=== PATIENT | female | born 1940 | race Caucasian/White ===

== ENCOUNTER 2018-03-14 13:51 | Emergency (ER) | payer MEDICARE, OTHER ==
[~2018-03-14] VITALS: Wt 59.0 kg
--- NOTE | ~2018-03-14 | EKG ---
[place], [place] ELECTROCARDIOGRAM REPORT NAME: HUSAM MANZANO UNIT #: [id number] ROOM: DOCTOR: LAURA FRANCO MD BIRTHDATE: [birth year] DOS: 03/14/2018 TIME: 1406 hours. FINDINGS: 1. Normal sinus rhythm at 95 beats per minute. 2. The tracing is normal. 3. No previous tracing is available for comparison. LAURA FRANCO MD CM:EKGRPT:ELECTROCARDIOGRAM REPORT 1641 1802 LAURA FRANCO MD
[2018-03-14 14:32] LABS: BILIRUBIN NEGATIVE (NEGATIVE); BLOOD NEGATIVE (NEGATIVE); CLARITY CLEAR (CLEAR); COLOR YELLOW (YELLOW); GLUCOSE NEGATIVE (NEGATIVE); KETONE NEGATIVE (NEGATIVE); LEUKO ESTERASE NEGATIVE (NEGATIVE); NITRITE NEGATIVE (NEGATIVE); PH 7.5 (5.0-9.0); SPECIFIC GRAVITY 1.015 (1.005-1.030); UROBILINOGEN 0.2 E.U./dl (0.2-1.0)
[2018-03-14 14:42] LABS: BACTERIA TRACE; WBC 0-2 wbc/hpf (0-5)
[2018-03-14 14:56] LABS: BASO % 0.2 % (0.0-1.0); EOS % 0.2 % (1.0-4.0); HEMATOCRIT 34.4 % (37.0-47.0); HEMOGLOBIN 11.2 g/dl (12.0-16.0); LYMPH # 1.4 10*3/uL (1.3-4.4); MEAN CELL VOLUME 79.4 fl (81.0-99.0); MEAN CORPUSCULAR HGB 25.9 pg (27.0-31.0); MEAN CORPUSCULAR HGB CONC 32.6 g/dl (33.0-37.0); MEAN PLATELET VOLUME 9.7 fl (9.6-12.3); MONO # 0.8 10*3/uL (0.1-1.0); MONO % 7.5 % (3.0-9.0); NEUT # 7.8 10*3/uL (2.3-7.9); NEUT % 77.7 % (47.0-73.0); PLATELET COUNT AUTOMATED 322 10*3/uL (130-400); RED BLOOD COUNT 4.33 10*6/uL (4.10-5.10); WHITE BLOOD COUNT 10.1 10*3/uL (4.8-10.8)
[2018-03-14 15:13] LABS: ALBUMIN 2.9 gm/dl (3.1-4.5); ALKALINE PHOSPHATASE 57 U/L (45-117); BUN 17 mg/dl (7-24); CHLORIDE 109 mmol/L (98-107); POTASSIUM 4.3 mmol/L (3.5-5.1); SGOT/AST 16 IU/L (3-35); SGPT/ALT 25 U/L (12-78); SODIUM 140 mmol/L (136-145); TOTAL PROTEIN 6.5 gm/dL (6.4-8.2)
[2018-03-14 15:15] LABS: TROPONIN I < 0.015 ng/ml (<0.045)
== END 2018-03-14 18:17 | disposition home or self-care (01) ==
LOC: ED 13:51
PROVIDERS: Nurse Practitioner Family
DX: K59.09 Other constipation (principal); R03.0 Elevated blood-pressure reading, without diagnosis of hypertension

== ENCOUNTER 2018-03-29 08:48 | Inpatient (IN) | payer MEDICARE, OTHER ==
[2018-03-29] VITALS (13 sets, daily range): BP systolic 115–151; BP diastolic 67–96
[~2018-03-29] VITALS: Ht 172.7 cm; Wt 52.6 kg
--- NOTE | ~2018-03-29 | O ---
[place], [place] OPERATIVE NOTE NAME: HUSAM MANZANO UNIT #: [id number] ROOM: [facility] DOCTOR: PRESLEY HENRIQUEZ,MADISON BIRTHDATE: [birth year] DOS: 03/31/2018 INDICATIONS: The patient has presented with GI bleed and nausea. The patient with dementia, details of her complaint and distress cannot be quantitatively addressed. PROCEDURE: Today's procedure part of investigation is panendoscopy and colonoscopy. PREMEDICATION: Propofol. SCOPE: Olympus forward-viewing gastroscope Q10 video. REPORT: After putting the patient in left lateral position and application of lubricant to the scope, the scope was introduced. Thereafter, under direct visualization, I advanced through the length of the esophagus without difficulty. Gastric pouch was entered. A small hiatal hernia was seen, gastritis noticed. Duodenal bulb, second and third part within normal limits. The patient was extubated. She tolerated the procedure well. IMPRESSION: Gastritis. PLAN AND DISCUSSION: We are going to proceed with colonoscopy. MADISON SHERWOOD MD CM:OPRECORD:OPERATIVE NOTE [id number] MADISON SHERWOOD MD 03/31/18 2245 interface
--- NOTE | ~2018-03-29 | O ---
[place], [place] OPERATIVE NOTE NAME: HUSAM MANZANO UNIT #: [id number] ROOM: [facility] DOCTOR: PRESLEY HENRIQUEZ,MADISON BIRTHDATE: [birth year] DOS: 03/31/2018 GASTROSCOPIC REPORT INDICATIONS: The patient has presented with GI bleed, source unknown. PROCEDURE: Today's procedure part of investigation is colonoscopy plus biopsy. PREMEDICATION: Propofol. SCOPE: Olympus forward-viewing colonoscope 10L video. REPORT: After putting the patient in left lateral position and application of lubricant to the rectal pouch and digital examination, the scope was introduced. Thereafter, under direct visualization, advanced throughout the length ____ of the colon. We are encountering stool and severe angulation of the colon. Scope as much as possible was manipulated. Stool suctioned out. Diverticulosis noticed. Proctitis of moderate to severe degree was noticed. Biopsy was obtained. Photographic series obtained. Air was suctioned out. The patient was extubated and she tolerated the procedure well. IMPRESSION: Retained stool, diverticulosis, proctitis status post biopsy. PLAN AND DISCUSSION: Anucort-HC suppository 1 at bedtime and we did not want to burden the patient with another prep and re-colonoscopy. We will discuss with the family. MADISON SHERWOOD MD CM:OPRECORD:OPERATIVE NOTE [id number] MADISON SHERWOOD MD 03/31/18 2247 interface
--- NOTE | ~2018-03-29 | CON ---
[place], [place] REPORT OF CONSULTATION NAME: HUSAM MANZANO UNIT #: [id number] ROOM: [facility] DOCTOR: PRESLEY HENRIQUEZMADISON BIRTHDATE: [birth year] DOS: 03/31/2018 GASTROENDOSCOPIC REPORT HISTORY OF PRESENT ILLNESS: A 77-year-old patient who presented with chief complaint of nausea, vomiting, blood in the stool and anemia, borderline microcytic, H and H of 10 and 33. I have been called several times regarding this patient. A CT scan of the abdomen was obtained. There was a concern about inflammatory process ongoing on rectum and colonoscopic evaluation was recommended. Per CT, liver function tests normal. White blood cell was 11. Chest PA x-ray was obtained. No acute pulmonary pathology. H and H was followed up periodically and remains stable at borderline anemia. 10 and 31. PAST MEDICAL HISTORY: Associated hypertension, constipation, anemia, and hypothyroidism. PAST SURGICAL HISTORY: Not available. SOCIAL HISTORY: Nonsmoker, nonalcohol consumer, resident of jail. FAMILY HISTORY: Noncontributory. ALLERGIES: To no known drugs. MEDICATIONS: List has been reviewed. There is no anticoagulants. Ecotrin has been on board. REVIEW OF SYSTEMS: Cannot be meaningfully obtained from her. PHYSICAL EXAMINATION: VITAL SIGNS: Stable. HEENT: Within normal limits. NECK: Supple, no thyromegaly, no cervical lymphadenopathy. CHEST: Symmetric anatomy, equal expansion. No wheeze, no rhonchi. HEART: Normal sinus rhythm, no gallop, no murmur. ABDOMEN: Soft. No hepato-organomegaly. Bowel sounds present. EXTREMITIES: No cyanosis, no pedal edema. NEUROLOGIC: Alert. Disoriented. Labs reviewed, records reviewed. IMPRESSION: Lower gastrointestinal bleed, nausea, vomiting on aspirin, possible peptic ulcer disease, source of bleeding unknown, borderline anemia, hypothyroidism, essential hypertension, dementia, all has been recognized. PLAN AND DISCUSSION: Since there is line of communication limited, call placed to the son, "Tam." We are going to proceed with EGD and colonoscopy and defining the definitive source of blood loss. [place], [place] REPORT OF CONSULTATION NAME: HUSAM MANZANO UNIT #: [id number] ROOM: [facility] DOCTOR: PRESLEY HENRIQUEZ,MADISON BIRTHDATE: [birth year] MADISON SHERWOOD MD CM:CONSTR:REPORT OF CONSULTATION 1758 04/01/18 0521 interface
[2018-03-29 09:19] LABS: BASO % 0.2 % (0.0-1.0); EOS # 0.1 10*3/uL (0.0-0.4); EOS % 0.4 % (1.0-4.0); HEMATOCRIT 35.9 % (37.0-47.0); HEMOGLOBIN 11.2 g/dl (12.0-16.0); LYMPH # 2.7 10*3/uL (1.3-4.4); LYMPH % 24.1 % (27.0-41.0); MEAN CELL VOLUME 84.7 fl (81.0-99.0); MEAN CORPUSCULAR HGB 26.4 pg (27.0-31.0); MEAN CORPUSCULAR HGB CONC 31.2 g/dl (33.0-37.0); MEAN PLATELET VOLUME 9.4 fl (9.6-12.3); MONO # 0.6 10*3/uL (0.1-1.0); MONO % 4.9 % (3.0-9.0); NEUT # 7.8 10*3/uL (2.3-7.9); PLATELET COUNT AUTOMATED 466 10*3/uL (130-400); RED BLOOD COUNT 4.24 10*6/uL (4.10-5.10); RED CELL DISTRI WIDTH 20.1 % (0-14.5); WHITE BLOOD COUNT 11.2 10*3/uL (4.8-10.8)
[2018-03-29 09:27] LABS: ACT PARTIAL THROMBO TIME 19.3 SECONDS (20.8-31.5)
[2018-03-29 09:33] LABS: ALBUMIN 2.6 gm/dl (3.1-4.5); ALKALINE PHOSPHATASE 72 U/L (45-117); BUN 23 mg/dl (7-24); CHLORIDE 113 mmol/L (98-107); POTASSIUM 3.9 mmol/L (3.5-5.1); SGOT/AST 20 IU/L (3-35); SGPT/ALT 41 U/L (12-78); SODIUM 143 mmol/L (136-145); TOTAL PROTEIN 6.8 gm/dL (6.4-8.2)
[2018-03-29] MEDS ORDERED: COZAAR50 M1 PO (09:53)
[2018-03-29] MEDS ORDERED: NATURE'S BLEND F1 MG PO (09:53)
[2018-03-29] MEDS ORDERED: VITAMIN B-625 M1 PO (09:53)
[2018-03-29] MEDS ORDERED: ECOTRIN325 M1 PO (09:54)
[2018-03-29] MEDS ORDERED: B121000 MCG/1 IM (09:55)
[2018-03-29] MEDS ORDERED: LEVOXYL75 MCG PO (09:56)
[2018-03-29] MEDS ORDERED: VISTARIL50 MG PO (09:56)
[2018-03-29] MEDS ORDERED: VITAMIN D22000 UNIT PO (09:56)
[2018-03-29] MEDS ORDERED: MEGACE40 MG PO (09:57)
[2018-03-29] MEDS ORDERED: LORATADINE10 M3 PO (09:57)
[2018-03-29] MEDS ORDERED: CALCIUM + D3 E1 EACH PO (11:11)
[2018-03-29 18:15] LABS: HEMATOCRIT 27.7 % (37.0-47.0)
[2018-03-29 18:24] LABS: HEMOGLOBIN 8.8 g/dl (12.0-16.0)
[2018-03-30] VITALS: BP 141/63
[2018-03-30 01:28] LABS: HEMATOCRIT 33.9 % (37.0-47.0); HEMOGLOBIN 11.1 g/dl (12.0-16.0)
[2018-03-30 04:00] VITALS: BP 105/41
[2018-03-30 06:10] LABS: HEMATOCRIT 32.7 % (37.0-47.0); HEMOGLOBIN 10.5 g/dl (12.0-16.0)
[2018-03-30 06:11] LABS: BASO % 0.2 % (0.0-1.0); EOS # 0.1 10*3/uL (0.0-0.4); EOS % 0.7 % (1.0-4.0); HEMATOCRIT 32.2 % (37.0-47.0); HEMOGLOBIN 10.4 g/dl (12.0-16.0); LYMPH # 2.1 10*3/uL (1.3-4.4); LYMPH % 25.5 % (27.0-41.0); MEAN CELL VOLUME 84.1 fl (81.0-99.0); MEAN CORPUSCULAR HGB 27.2 pg (27.0-31.0); MEAN CORPUSCULAR HGB CONC 32.3 g/dl (33.0-37.0); MEAN PLATELET VOLUME 9.5 fl (9.6-12.3); MONO # 0.4 10*3/uL (0.1-1.0); MONO % 4.8 % (3.0-9.0); NEUT # 5.5 10*3/uL (2.3-7.9); NEUT % 68.4 % (47.0-73.0); PLATELET COUNT AUTOMATED 334 10*3/uL (130-400); RED BLOOD COUNT 3.83 10*6/uL (4.10-5.10); RED CELL DISTRI WIDTH 18.4 % (0-14.5); WHITE BLOOD COUNT 8.1 10*3/uL (4.8-10.8)
[2018-03-30 06:47] LABS: BUN 19 mg/dl (7-24); CHLORIDE 115 mmol/L (98-107); POTASSIUM 3.7 mmol/L (3.5-5.1); SODIUM 145 mmol/L (136-145)
[2018-03-30 06:59] LABS: CREATININE 0.84 mg/dL (0.55-1.02); FREE T4 1.24 ng/dl (0.76-1.46); PHOSPHOROUS 3.3 mg/dL (2.5-4.9)
[2018-03-30 07:47] LABS: VITAMIN D, 25-HYDROXY 101.7 ng/mL (30-100)
[2018-03-30 08:00] VITALS: BP 131/74
[2018-03-30 12:00] VITALS: BP 137/74
[2018-03-30 12:14] LABS: HEMATOCRIT 31.7 % (37.0-47.0); HEMOGLOBIN 10.3 g/dl (12.0-16.0)
[2018-03-30 16:00] VITALS: BP 143/62
[2018-03-30 20:00] VITALS: BP 162/78
[2018-03-31] VITALS (9 sets, daily range): BP systolic 128–184; BP diastolic 61–92
[2018-03-31 05:34] LABS: BASO % 0.2 % (0.0-1.0); EOS # 0.1 10*3/uL (0.0-0.4); EOS % 1.2 % (1.0-4.0); HEMATOCRIT 31.8 % (37.0-47.0); HEMOGLOBIN 10.4 g/dl (12.0-16.0); LYMPH # 2.1 10*3/uL (1.3-4.4); LYMPH % 21.9 % (27.0-41.0); MEAN CELL VOLUME 84.6 fl (81.0-99.0); MEAN CORPUSCULAR HGB 27.7 pg (27.0-31.0); MEAN CORPUSCULAR HGB CONC 32.7 g/dl (33.0-37.0); MEAN PLATELET VOLUME 9.5 fl (9.6-12.3); MONO # 0.6 10*3/uL (0.1-1.0); MONO % 6.4 % (3.0-9.0); NEUT # 6.7 10*3/uL (2.3-7.9); PLATELET COUNT AUTOMATED 330 10*3/uL (130-400); RED BLOOD COUNT 3.76 10*6/uL (4.10-5.10); RED CELL DISTRI WIDTH 18.3 % (0-14.5); WHITE BLOOD COUNT 9.5 10*3/uL (4.8-10.8)
[2018-03-31 06:01] LABS: BUN 10 mg/dl (7-24); CHLORIDE 113 mmol/L (98-107); CREATININE 0.79 mg/dL (0.55-1.02); SODIUM 145 mmol/L (136-145)
[2018-04-01] VITALS: BP 154/76
[2018-04-01 04:00] VITALS: BP 149/76
[2018-04-01 06:32] LABS: BASO % 0.3 % (0.0-1.0); EOS # 0.1 10*3/uL (0.0-0.4); EOS % 1.4 % (1.0-4.0); HEMATOCRIT 31.5 % (37.0-47.0); HEMOGLOBIN 10.1 g/dl (12.0-16.0); LYMPH % 21.1 % (27.0-41.0); MEAN CELL VOLUME 85.6 fl (81.0-99.0); MEAN CORPUSCULAR HGB 27.4 pg (27.0-31.0); MEAN CORPUSCULAR HGB CONC 32.1 g/dl (33.0-37.0); MEAN PLATELET VOLUME 9.5 fl (9.6-12.3); MONO # 0.7 10*3/uL (0.1-1.0); MONO % 7.8 % (3.0-9.0); NEUT # 6.5 10*3/uL (2.3-7.9); NEUT % 69.1 % (47.0-73.0); PLATELET COUNT AUTOMATED 320 10*3/uL (130-400); RED BLOOD COUNT 3.68 10*6/uL (4.10-5.10); RED CELL DISTRI WIDTH 18.2 % (0-14.5); WHITE BLOOD COUNT 9.4 10*3/uL (4.8-10.8)
[2018-04-01 06:38] LABS: BUN 4 mg/dl (7-24); CHLORIDE 112 mmol/L (98-107); CREATININE 0.75 mg/dL (0.55-1.02); PHOSPHOROUS 2.6 mg/dL (2.5-4.9); POTASSIUM 3.2 mmol/L (3.5-5.1); SODIUM 142 mmol/L (136-145)
[2018-04-01 08:00] VITALS: BP 136/72
[2018-04-01 12:00] VITALS: BP 148/75
[2018-04-01] MEDS ORDERED: FLAGYL500 MG PO (13:24)
[2018-04-01] MEDS ORDERED: CIPRO500 MG PO (13:24)
[2018-04-01 16:00] VITALS: BP 147/65
[2018-04-01 20:00] VITALS: BP 149/73
[2018-04-02] VITALS: BP 144/65
[2018-04-02 07:26] LABS: HEMATOCRIT 32.1 % (37.0-47.0); HEMOGLOBIN 10.2 g/dl (12.0-16.0); MEAN CELL VOLUME 86.1 fl (81.0-99.0); MEAN CORPUSCULAR HGB 27.3 pg (27.0-31.0); MEAN CORPUSCULAR HGB CONC 31.8 g/dl (33.0-37.0); PLATELET COUNT AUTOMATED 382 10*3/uL (130-400); RED BLOOD COUNT 3.73 10*6/uL (4.10-5.10); RED CELL DISTRI WIDTH 18.9 % (0-14.5); WHITE BLOOD COUNT 6.8 10*3/uL (4.8-10.8)
[2018-04-02 08:22] LABS: BASOPHILS 2 % (0-1); PLATELET SUFFICIENCY NORMAL (NORMAL); TOTAL CELLS COUNTED 100 #CELLS
[2018-04-02 08:23] LABS: BURR CELLS FEW; OVALOCYTES FEW; POLYCHROMASIA SLIGHT
[2018-04-02 12:00] VITALS: BP 146/66
[2018-04-02] MEDS ORDERED: Anusol Hc,Anuco25 MG R (13:24)
[2018-04-02 16:00] VITALS: BP 134/58
== END 2018-04-02 19:00 | disposition home or self-care (01) | DRG 377 ==
LOC: ED 08:48 → 5E 09:20 → ICCU 09:20 → EDHOLD 09:20 → 4E 09:20 → 5E 09:53 → ICCU 19:12 → 4E 04-01 13:51
PROVIDERS: Emergency Medicine; Internal Medicine; Student in an Organized Health Care Education/Training Program
PROC: 30233N1 Transfusion of Nonautologous Red Blood Cells into Peripheral Vein, Percutaneous Approach (ICD-10-PCS; principal; 2018-03-29)
PROC: 0DJ08ZZ Inspection of Upper Intestinal Tract, Via Natural or Artificial Opening Endoscopic (ICD-10-PCS; 2018-03-31)
PROC: 0DBN8ZX Excision of Sigmoid Colon, Via Natural or Artificial Opening Endoscopic, Diagnostic (ICD-10-PCS; 2018-03-31)
DX: K62.5 Hemorrhage of anus and rectum (principal); E43 Unspecified severe protein-calorie malnutrition; G93.41 Metabolic encephalopathy; D68.59 Other primary thrombophilia; E87.8 Other disorders of electrolyte and fluid balance, not elsewhere classified; D64.9 Anemia, unspecified; F03.90 Unspecified dementia, unspecified severity, without behavioral disturbance, psychotic disturbance, mood disturbance, and anxiety; K57.92 Diverticulitis of intestine, part unspecified, without perforation or abscess without bleeding; Z68.1 Body mass index [BMI] 19.9 or less, adult; K29.70 Gastritis, unspecified, without bleeding; K52.9 Noninfective gastroenteritis and colitis, unspecified; R73.9 Hyperglycemia, unspecified; E53.8 Deficiency of other specified B group vitamins; R62.7 Adult failure to thrive; E55.9 Vitamin D deficiency, unspecified; E03.9 Hypothyroidism, unspecified; I10 Essential (primary) hypertension; Z66 Do not resuscitate; K44.9 Diaphragmatic hernia without obstruction or gangrene; Z51.5 Encounter for palliative care; K57.30 Diverticulosis of large intestine without perforation or abscess without bleeding; K62.89 Other specified diseases of anus and rectum; Z79.82 Long term (current) use of aspirin; Z79.899 Other long term (current) drug therapy

== ENCOUNTER 2018-04-13 21:44 | Emergency (ER) | payer MEDICARE, OTHER ==
[~2018-04-13] VITALS: Ht 162.5 cm; Wt 63.5 kg
[~2018-04-13 21:44] MED LIST: Anusol Hc,Anuco25 MG R; B121000 MCG/1 IM; CALCIUM + D3 E1 EACH PO; CIPRO500 MG PO; COZAAR50 M1 PO; ECOTRIN325 M1 PO; FLAGYL500 MG PO; LEVOXYL75 MCG PO; LORATADINE10 M3 PO; MEGACE40 MG PO; NATURE'S BLEND F1 MG PO; VISTARIL50 MG PO; VITAMIN B-625 M1 PO; VITAMIN D22000 UNIT PO
[2018-04-13 22:31] LABS: BASO % 0.6 % (0.0-1.0); EOS # 0.1 10*3/uL (0.0-0.4); EOS % 1.1 % (1.0-4.0); HEMATOCRIT 36.1 % (37.0-47.0); HEMOGLOBIN 11.2 g/dl (12.0-16.0); LYMPH # 2.2 10*3/uL (1.3-4.4); LYMPH % 30.1 % (27.0-41.0); MEAN CELL VOLUME 88.7 fl (81.0-99.0); MEAN CORPUSCULAR HGB 27.5 pg (27.0-31.0); MEAN PLATELET VOLUME 9.2 fl (9.6-12.3); MONO # 0.5 10*3/uL (0.1-1.0); MONO % 6.4 % (3.0-9.0); NEUT # 4.4 10*3/uL (2.3-7.9); NEUT % 61.5 % (47.0-73.0); PLATELET COUNT AUTOMATED 331 10*3/uL (130-400); RED BLOOD COUNT 4.07 10*6/uL (4.10-5.10); RED CELL DISTRI WIDTH 18.5 % (0-14.5); WHITE BLOOD COUNT 7.2 10*3/uL (4.8-10.8)
[2018-04-13 22:34] LABS: BILIRUBIN NEGATIVE (NEGATIVE); BLOOD NEGATIVE (NEGATIVE); CLARITY SL CLOUDY (CLEAR); COLOR YELLOW (YELLOW); GLUCOSE NEGATIVE (NEGATIVE); KETONE NEGATIVE (NEGATIVE); LEUKO ESTERASE NEGATIVE (NEGATIVE); NITRITE NEGATIVE (NEGATIVE); UROBILINOGEN 0.2 E.U./dl (0.2-1.0)
[2018-04-13 22:42] LABS: BACTERIA 2+; CALCIUM OXALATE CRYSTALS 1+; EPITHELIAL CELLS 0-2; MUCOUS TRACE; RBC 0-2 rbc/hpf (0-2)
[2018-04-13 22:53] LABS: ALBUMIN 2.9 gm/dl (3.1-4.5); ALKALINE PHOSPHATASE 47 U/L (45-117); BUN 16 mg/dl (7-24); CHLORIDE 113 mmol/L (98-107); CREATININE 0.67 mg/dL (0.55-1.02); POTASSIUM 3.5 mmol/L (3.5-5.1); SGOT/AST 15 IU/L (3-35); SGPT/ALT 18 U/L (12-78); SODIUM 145 mmol/L (136-145); TOTAL PROTEIN 6.3 gm/dL (6.4-8.2)
[2018-04-13 22:56] LABS: TROPONIN I < 0.015 ng/ml (<0.045)
== END 2018-04-14 01:23 | disposition other institution (70) ==
LOC: ED 21:44
PROVIDERS: Physician Assistant
DX: R29.810 Facial weakness (principal); Z79.899 Other long term (current) drug therapy; W19.XXXA Unspecified fall, initial encounter; Y93.89 Activity, other specified; Y92.129 Unspecified place in nursing home as the place of occurrence of the external cause; Y99.9 Unspecified external cause status

== ENCOUNTER 2019-03-11 15:58 | Emergency (ER) | payer MEDICARE, OTHER ==
[~2019-03-11] VITALS: Ht 162.5 cm; Wt 63.5 kg
--- NOTE | ~2019-03-11 | EKG ---
[place], [place] ELECTROCARDIOGRAM REPORT NAME: HUSAM MANZANO UNIT #: [id number] ROOM: DOCTOR: EPIPHANY DRAFT REPORT BIRTHDATE: [birth year] [facility] Test Date: 2019-03-11 Test Time: 16:55:43 Pat Name: HUSAM MANZANO Department: Room: Gender: F Bagging Salvager: Nayana Uribe : 1940 Requested By: NATALIIA STEVENS PA-C Order Number: [id number] Reading MD: Rima Rodriguez Measurements Intervals [place] Rate: 65 P: 53 [place]: 135 QRS: 44 QRSD: 87 T: 79 QT: 427 QTc: 444 Interpretive Statements Sinus rhythm Borderline low voltage, extremity leads Baseline wander in lead(s) V2,V3 No previous ECG available for comparison Electronically Signed On 03-13-2019 10:58:18 PDT by Rima Rodriguez CM:EKGRPT:ELECTROCARDIOGRAM REPORT 1655 1058 NATALIIA SLAUGHTER DRAFT REPORT NATALIIA STEVENS PA-C
[2019-03-11 16:49] LABS: BASO % 0.5 % (0.0-1.0); EOS % 0.6 % (1.0-4.0); HEMATOCRIT 42.9 % (37.0-47.0); HEMOGLOBIN 13.7 g/dl (12.0-16.0); LYMPH # 2.5 10*3/uL (1.3-4.4); LYMPH % 37.8 % (27.0-41.0); MEAN CELL VOLUME 84.1 fl (81.0-99.0); MEAN CORPUSCULAR HGB 26.9 pg (27.0-31.0); MEAN CORPUSCULAR HGB CONC 31.9 g/dl (33.0-37.0); MEAN PLATELET VOLUME 10.1 fl (9.6-12.3); MONO # 0.5 10*3/uL (0.1-1.0); MONO % 7.5 % (3.0-9.0); NEUT # 3.6 10*3/uL (2.3-7.9); NEUT % 53.4 % (47.0-73.0); PLATELET COUNT AUTOMATED 257 10*3/uL (130-400); RED CELL DISTRI WIDTH 14.8 % (0-14.5); WHITE BLOOD COUNT 6.6 10*3/uL (4.8-10.8)
[2019-03-11 16:57] LABS: ACT PARTIAL THROMBO TIME 20.9 SECONDS (20.8-31.5)
[2019-03-11 17:03] LABS: ALBUMIN 3.2 gm/dl (3.1-4.5); ALKALINE PHOSPHATASE 81 U/L (45-117); BUN 11 mg/dl (7-24); CHLORIDE 108 mmol/L (98-107); POTASSIUM 3.5 mmol/L (3.5-5.1); SGOT/AST 19 IU/L (3-35); SGPT/ALT 19 U/L (12-78); SODIUM 142 mmol/L (136-145); TOTAL PROTEIN 6.8 gm/dL (6.4-8.2)
[2019-03-11 17:24] LABS: BILIRUBIN NEGATIVE (NEGATIVE); BLOOD NEGATIVE (NEGATIVE); CLARITY CLOUDY (CLEAR); COLOR YELLOW (YELLOW); GLUCOSE NEGATIVE (NEGATIVE); KETONE NEGATIVE (NEGATIVE); LEUKO ESTERASE 1+ (NEGATIVE); NITRITE NEGATIVE (NEGATIVE); UROBILINOGEN 0.2 E.U./dl (0.2-1.0)
[2019-03-11 17:39] LABS: BACTERIA 1+
[2019-03-11] MEDS ORDERED: KEFLEX500 M1 PO (19:09)
[2019-04-20] MEDS ORDERED: ACIDOPHILUS1 EAC4 PO (18:45)
[2019-04-20] MEDS ORDERED: ZOLOFT50 MG PO (18:46)
[2019-04-20] MEDS ORDERED: MEGACE 40400 MG/10 PO (18:49)
[2019-04-20] MEDS ORDERED: ONDANSETRON HYDR4 M1 PO (18:52)
[2019-04-20] MEDS ORDERED: IBU800 M2 PO (18:54)
== END 2019-03-11 19:15 | disposition other institution (70) ==
LOC: ED 15:58
PROVIDERS: Physician Assistant
DX: N39.0 Urinary tract infection, site not specified (principal); F03.90 Unspecified dementia, unspecified severity, without behavioral disturbance, psychotic disturbance, mood disturbance, and anxiety; Z79.899 Other long term (current) drug therapy; W19.XXXA Unspecified fall, initial encounter; Y93.89 Activity, other specified; Y92.128 Other place in nursing home as the place of occurrence of the external cause; Y99.8 Other external cause status

== ENCOUNTER 2019-07-31 15:41 | Inpatient (IN) | payer MEDICARE, OTHER ==
[~2019-07-31] VITALS: Ht 162.6 cm; Wt 76.9 kg
--- NOTE | ~2019-07-31 | EKG ---
[place], [place] ELECTROCARDIOGRAM REPORT NAME: HUSAM MANZANO UNIT #: [id number] ROOM: 404 DOCTOR: EPIPHANY DRAFT REPORT BIRTHDATE: [birth year] [facility] Test Date: 2019-07-31 Test Time: 16:16:58 Pat Name: HUSAM MANZANO Department: Room: 404 Gender: F Senior Engineering Associate: Nayana Uribe : 1940 Requested By: KARMA DOLL Order Number: [id number] Reading MD: Ricco Borja MD Measurements Intervals [place] Rate: 81 P: 36 [place]: 125 QRS: 26 QRSD: 83 T: 80 QT: 363 QTc: 422 Interpretive Statements Sinus rhythm Compared to ECG 04/20/2019 18:56:40 No significant changes Electronically Signed On 08-01-2019 7:59:49 PDT by Ricco Borja MD CM:EKGRPT:ELECTROCARDIOGRAM REPORT 1616 [id number] KARMA DOLL EPIPHANY DRAFT REPORT KARMA DOLL
[~2019-07-31 15:41] MED LIST changes: +ACIDOPHILUS1 EAC4 PO; +IBU800 M2 PO; +KEFLEX500 M1 PO; +MEGACE 40400 MG/10 PO; +ONDANSETRON HYDR4 M1 PO; +ZOLOFT50 MG PO
[2019-07-31 15:44] VITALS: BP 148/76
[2019-07-31 16:07] LABS: BILIRUBIN NEGATIVE (NEGATIVE); BLOOD NEGATIVE (NEGATIVE); CLARITY SL CLOUDY (CLEAR); COLOR YELLOW (YELLOW); GLUCOSE NEGATIVE (NEGATIVE); KETONE NEGATIVE (NEGATIVE); LEUKO ESTERASE NEGATIVE (NEGATIVE); NITRITE NEGATIVE (NEGATIVE); SPECIFIC GRAVITY 1.015 (1.005-1.030); UROBILINOGEN 0.2 E.U./dl (0.2-1.0)
[2019-07-31 16:14] LABS: BACTERIA TRACE; WBC 0-2 wbc/hpf (0-5)
[2019-07-31 16:31] LABS: BASO % 0.1 % (0.0-1.0); EOS # 0.1 10*3/uL (0.0-0.4); HEMATOCRIT 37.5 % (37.0-47.0); HEMOGLOBIN 11.6 g/dl (12.0-16.0); LYMPH # 1.9 10*3/uL (1.3-4.4); LYMPH % 21.3 % (27.0-41.0); MEAN CELL VOLUME 87.6 fl (81.0-99.0); MEAN CORPUSCULAR HGB 27.1 pg (27.0-31.0); MEAN CORPUSCULAR HGB CONC 30.9 g/dl (33.0-37.0); MONO # 0.8 10*3/uL (0.1-1.0); MONO % 9.1 % (3.0-9.0); NEUT # 6.1 10*3/uL (2.3-7.9); NEUT % 68.2 % (47.0-73.0); PLATELET COUNT AUTOMATED 200 10*3/uL (130-400); RED BLOOD COUNT 4.28 10*6/uL (4.10-5.10); RED CELL DISTRI WIDTH 15.6 % (0-14.5); WHITE BLOOD COUNT 8.9 10*3/uL (4.8-10.8)
[2019-07-31 16:39] LABS: ACT PARTIAL THROMBO TIME 23.1 SECONDS (20.0-32.1); INTERNATIONAL NORM RATIO 0.9 (2.0-3.5)
[2019-07-31 16:43] LABS: ALKALINE PHOSPHATASE 91 U/L (45-117); BUN 15 mg/dl (7-24); CHLORIDE 113 mmol/L (98-107); CREATININE 0.89 mg/dL (0.55-1.02); LIPASE 139 U/L (73-393); POTASSIUM 3.2 mmol/L (3.5-5.1); SGOT/AST 13 IU/L (3-35); SGPT/ALT 17 U/L (12-78); SODIUM 144 mmol/L (136-145); TOTAL PROTEIN 6.7 gm/dL (6.4-8.2)
[2019-07-31 16:45] LABS: TROPONIN I < 0.015 ng/ml (<0.045)
[2019-07-31 17:15] VITALS: BP 137/102
[2019-07-31] MEDS ORDERED: LOTRISONE 0.05%45 GM T (18:06)
[2019-07-31] MEDS ORDERED: FLUCONAZOLE100 MG PO (18:06)
[2019-07-31] MEDS ORDERED: HYDROXYZINE HCL50 MG PO (18:13)
[2019-07-31] MEDS ORDERED: MI ACID SUSPEN355 ML PO (18:15)
[2019-07-31] MEDS ORDERED: MILK OF MA400 MG/5 M PO (18:15)
[2019-07-31 20:00] VITALS: BP 161/88
[2019-08-01] VITALS: BP 154/78
[2019-08-01 06:52] LABS: BASO % 0.1 % (0.0-1.0); EOS # 0.1 10*3/uL (0.0-0.4); EOS % 1.5 % (1.0-4.0); HEMATOCRIT 37.5 % (37.0-47.0); HEMOGLOBIN 11.7 g/dl (12.0-16.0); LYMPH # 1.8 10*3/uL (1.3-4.4); LYMPH % 26.6 % (27.0-41.0); MEAN CORPUSCULAR HGB 26.5 pg (27.0-31.0); MEAN CORPUSCULAR HGB CONC 31.2 g/dl (33.0-37.0); MEAN PLATELET VOLUME 10.6 fl (9.6-12.3); MONO # 0.6 10*3/uL (0.1-1.0); MONO % 8.6 % (3.0-9.0); NEUT # 4.3 10*3/uL (2.3-7.9); NEUT % 63.1 % (47.0-73.0); PLATELET COUNT AUTOMATED 209 10*3/uL (130-400); RED BLOOD COUNT 4.41 10*6/uL (4.10-5.10); RED CELL DISTRI WIDTH 15.5 % (0-14.5); WHITE BLOOD COUNT 6.8 10*3/uL (4.8-10.8)
[2019-08-01 07:07] LABS: ALBUMIN 2.7 gm/dl (3.1-4.5); ALKALINE PHOSPHATASE 91 U/L (45-117); BUN 12 mg/dl (7-24); CHLORIDE 113 mmol/L (98-107); CREATININE 0.78 mg/dL (0.55-1.02); PHOSPHOROUS 3.1 mg/dL (2.5-4.9); POTASSIUM 3.9 mmol/L (3.5-5.1); SGOT/AST 12 IU/L (3-35); SGPT/ALT 17 U/L (12-78); SODIUM 144 mmol/L (136-145); TOTAL PROTEIN 6.4 gm/dL (6.4-8.2)
[2019-08-01 08:00] VITALS: BP 130/88
[2019-08-01 12:00] VITALS: BP 153/68
[2019-08-01 16:00] VITALS: BP 140/64
[2019-08-01 20:00] VITALS: BP 136/66
[2019-08-02] VITALS: BP 123/73
[2019-08-02 06:24] LABS: BASO % 0.3 % (0.0-1.0); EOS # 0.1 10*3/uL (0.0-0.4); HEMATOCRIT 36.7 % (37.0-47.0); HEMOGLOBIN 11.5 g/dl (12.0-16.0); LYMPH # 1.7 10*3/uL (1.3-4.4); LYMPH % 22.5 % (27.0-41.0); MEAN CELL VOLUME 85.9 fl (81.0-99.0); MEAN CORPUSCULAR HGB 26.9 pg (27.0-31.0); MEAN CORPUSCULAR HGB CONC 31.3 g/dl (33.0-37.0); MEAN PLATELET VOLUME 10.1 fl (9.6-12.3); MONO # 0.7 10*3/uL (0.1-1.0); MONO % 8.7 % (3.0-9.0); NEUT # 5.1 10*3/uL (2.3-7.9); NEUT % 67.1 % (47.0-73.0); PLATELET COUNT AUTOMATED 230 10*3/uL (130-400); RED BLOOD COUNT 4.27 10*6/uL (4.10-5.10); RED CELL DISTRI WIDTH 15.8 % (0-14.5); WHITE BLOOD COUNT 7.6 10*3/uL (4.8-10.8)
[2019-08-02 06:40] LABS: ALBUMIN 2.8 gm/dl (3.1-4.5); ALKALINE PHOSPHATASE 88 U/L (45-117); BUN 13 mg/dl (7-24); CHLORIDE 111 mmol/L (98-107); CREATININE 0.82 mg/dL (0.55-1.02); POTASSIUM 3.9 mmol/L (3.5-5.1); SGOT/AST 13 IU/L (3-35); SGPT/ALT 16 U/L (12-78); SODIUM 142 mmol/L (136-145); TOTAL PROTEIN 6.5 gm/dL (6.4-8.2)
[2019-08-02 08:00] VITALS: BP 150/77
[2019-08-02 12:00] VITALS: BP 158/76
[2019-08-02 16:00] VITALS: BP 136/61
[2019-08-02 20:00] VITALS: BP 133/55
[2019-08-03] VITALS: BP 146/73
[2019-08-03 06:37] LABS: BASO % 0.3 % (0.0-1.0); EOS # 0.1 10*3/uL (0.0-0.4); EOS % 1.3 % (1.0-4.0); HEMATOCRIT 34.5 % (37.0-47.0); HEMOGLOBIN 10.8 g/dl (12.0-16.0); LYMPH # 1.8 10*3/uL (1.3-4.4); LYMPH % 24.3 % (27.0-41.0); MEAN CELL VOLUME 85.6 fl (81.0-99.0); MEAN CORPUSCULAR HGB 26.8 pg (27.0-31.0); MEAN CORPUSCULAR HGB CONC 31.3 g/dl (33.0-37.0); MEAN PLATELET VOLUME 10.1 fl (9.6-12.3); MONO # 0.6 10*3/uL (0.1-1.0); MONO % 8.5 % (3.0-9.0); NEUT # 4.9 10*3/uL (2.3-7.9); NEUT % 65.3 % (47.0-73.0); PLATELET COUNT AUTOMATED 248 10*3/uL (130-400); RED BLOOD COUNT 4.03 10*6/uL (4.10-5.10); RED CELL DISTRI WIDTH 15.8 % (0-14.5); WHITE BLOOD COUNT 7.5 10*3/uL (4.8-10.8)
[2019-08-03 08:00] VITALS: BP 163/88
[2019-08-03 12:00] VITALS: BP 138/60
[2019-08-03 16:00] VITALS: BP 148/63
[2019-08-03 20:00] VITALS: BP 152/56
[2019-08-04] VITALS: BP 146/63
[2019-08-04 06:39] LABS: BASO % 0.3 % (0.0-1.0); EOS # 0.2 10*3/uL (0.0-0.4); EOS % 2.2 % (1.0-4.0); HEMATOCRIT 36.1 % (37.0-47.0); LYMPH # 2.1 10*3/uL (1.3-4.4); LYMPH % 28.1 % (27.0-41.0); MEAN CELL VOLUME 87.6 fl (81.0-99.0); MEAN CORPUSCULAR HGB 26.7 pg (27.0-31.0); MEAN CORPUSCULAR HGB CONC 30.5 g/dl (33.0-37.0); MONO # 0.7 10*3/uL (0.1-1.0); MONO % 9.1 % (3.0-9.0); NEUT # 4.4 10*3/uL (2.3-7.9); PLATELET COUNT AUTOMATED 267 10*3/uL (130-400); RED BLOOD COUNT 4.12 10*6/uL (4.10-5.10); RED CELL DISTRI WIDTH 15.9 % (0-14.5); WHITE BLOOD COUNT 7.3 10*3/uL (4.8-10.8)
[2019-08-04 07:21] LABS: BUN 15 mg/dl (7-24); CHLORIDE 113 mmol/L (98-107); CREATININE 0.96 mg/dL (0.55-1.02); POTASSIUM 3.8 mmol/L (3.5-5.1); SODIUM 143 mmol/L (136-145)
[2019-08-04 08:00] VITALS: BP 124/86
[2019-08-04] MEDS ORDERED: XARELTO1 EACH PO (10:29)
[2019-08-04] MEDS ORDERED: DOXYCYCLINE MO100 M1 PO (10:29)
[2019-08-04 12:00] VITALS: BP 124/80
== END 2019-08-04 13:34 | disposition home or self-care (01) | DRG 299 ==
LOC: ED 15:41 → 4E 16:43 → EDHOLD 16:43 → 4E 17:01
PROVIDERS: Family Medicine; Hospitalist; Internal Medicine; Nurse Practitioner Family; Student in an Organized Health Care Education/Training Program; ADMIT Internal Medicine
DX: I82.412 Acute embolism and thrombosis of left femoral vein (principal); E43 Unspecified severe protein-calorie malnutrition; L03.119 Cellulitis of unspecified part of limb; B49 Unspecified mycosis; I82.442 Acute embolism and thrombosis of left tibial vein; I82.432 Acute embolism and thrombosis of left popliteal vein; I10 Essential (primary) hypertension; F03.90 Unspecified dementia, unspecified severity, without behavioral disturbance, psychotic disturbance, mood disturbance, and anxiety; R62.7 Adult failure to thrive; E03.9 Hypothyroidism, unspecified; E83.41 Hypermagnesemia; E87.6 Hypokalemia; D64.9 Anemia, unspecified; E87.8 Other disorders of electrolyte and fluid balance, not elsewhere classified; E53.8 Deficiency of other specified B group vitamins; B35.3 Tinea pedis; Z66 Do not resuscitate; Z51.5 Encounter for palliative care; Z68.28 Body mass index [BMI] 28.0-28.9, adult; Z79.899 Other long term (current) drug therapy; Z87.440 Personal history of urinary (tract) infections

== ENCOUNTER 2019-08-30 14:45 | Emergency (ER) | payer MEDICARE, OTHER ==
[~2019-08-30] VITALS: Ht 167.6 cm; Wt 74.8 kg
[~2019-08-30 14:45] MED LIST changes: +DOXYCYCLINE MO100 M1 PO; +FLUCONAZOLE100 MG PO; +HYDROXYZINE HCL50 MG PO; +LOTRISONE 0.05%45 GM T; +MI ACID SUSPEN355 ML PO; +MILK OF MA400 MG/5 M PO; +XARELTO1 EACH PO
[2019-08-30 15:09] LABS: BILIRUBIN NEGATIVE (NEGATIVE); BLOOD NEGATIVE (NEGATIVE); CLARITY CLOUDY (CLEAR); COLOR YELLOW (YELLOW); GLUCOSE NEGATIVE (NEGATIVE); KETONE NEGATIVE (NEGATIVE); LEUKO ESTERASE NEGATIVE (NEGATIVE); NITRITE NEGATIVE (NEGATIVE); PH 7.5 (5.0-9.0); SPECIFIC GRAVITY 1.015 (1.005-1.030); UROBILINOGEN 0.2 E.U./dl (0.2-1.0)
[2019-08-30 15:15] LABS: BACTERIA 1+; WBC 0-2 wbc/hpf (0-5)
[2019-08-30 15:44] LABS: BASO % 0.4 % (0.0-1.0); EOS # 0.1 10*3/uL (0.0-0.4); EOS % 2.9 % (1.0-4.0); HEMATOCRIT 40.3 % (37.0-47.0); HEMOGLOBIN 12.8 g/dl (12.0-16.0); LYMPH # 1.6 10*3/uL (1.3-4.4); LYMPH % 32.8 % (27.0-41.0); MEAN CELL VOLUME 84.5 fl (81.0-99.0); MEAN CORPUSCULAR HGB 26.8 pg (27.0-31.0); MEAN CORPUSCULAR HGB CONC 31.8 g/dl (33.0-37.0); MEAN PLATELET VOLUME 9.8 fl (9.6-12.3); MONO # 0.5 10*3/uL (0.1-1.0); MONO % 9.8 % (3.0-9.0); NEUT # 2.6 10*3/uL (2.3-7.9); NEUT % 53.9 % (47.0-73.0); PLATELET COUNT AUTOMATED 265 10*3/uL (130-400); RED BLOOD COUNT 4.77 10*6/uL (4.10-5.10); WHITE BLOOD COUNT 4.8 10*3/uL (4.8-10.8)
[2019-08-30 15:56] LABS: ACT PARTIAL THROMBO TIME 26.1 SECONDS (20.0-32.1)
[2019-08-30 16:06] LABS: ALBUMIN 3.3 gm/dl (3.1-4.5); ALKALINE PHOSPHATASE 106 U/L (45-117); BUN 12 mg/dl (7-24); CHLORIDE 109 mmol/L (98-107); CREATININE 0.83 mg/dL (0.55-1.02); LIPASE 103 U/L (73-393); POTASSIUM 3.6 mmol/L (3.5-5.1); SGOT/AST 19 IU/L (3-35); SGPT/ALT 24 U/L (12-78); SODIUM 141 mmol/L (136-145); TOTAL PROTEIN 7.3 gm/dL (6.4-8.2)
[2019-08-30 16:07] LABS: TROPONIN I < 0.015 ng/ml (<0.045)
== END 2019-08-30 16:58 | disposition home or self-care (01) ==
LOC: ED 14:45
PROVIDERS: Physician Assistant
DX: Z00.00 Encounter for general adult medical examination without abnormal findings (principal); R41.0 Disorientation, unspecified; I10 Essential (primary) hypertension; E03.9 Hypothyroidism, unspecified; F32.9 Major depressive disorder, single episode, unspecified; R79.1 Abnormal coagulation profile; Z79.899 Other long term (current) drug therapy; Z86.718 Personal history of other venous thrombosis and embolism